=== PATIENT | female | born 2000 | race Caucasian/White ===

== ENCOUNTER 2022-02-03 20:24 | Emergency (ER) | payer OTHER, SELFPAY ==
--- NOTE | ~2022-02-03 | XR_ITS ---
EXAMINATION: XR chest 2V DATE: 02/03/2022 20:59 INDICATION: Chest and low back pain. TECHNIQUE: Frontal and lateral views of the chest were obtained. COMPARISON: Chest single view 07/02/2018 FINDINGS: The chest demonstrates clear lungs without pneumonia, pleural effusion, or pneumothorax. Th e heart size is normal. IMPRESSION: 1. No acute cardiopulmonary disease. Reviewed, dictated and finalized at location E.
[2022-02-03 20:33] VITALS: BP 123/60; PULSE 124; RESP 17; TEMP 37.5; O2SAT 100
--- NOTE | 2022-02-03 20:44 | ECG_ITS ---
Measurements Intervals [place] Rate: 120 P: 0 TX: 155 QRS: -26 QRSD: 82 T: 55 QT: 314 QTc: 445 Interpretive Statements SINUS TACHYCARDIA BORDERLINE LEFT AXIS DEVIATION [QRS AXIS < -20] MINIMAL VOLTAGE CRITERIA FOR LVH, CONSIDER NORMAL VARIANT [MEETS CRITERIA IN ONE OF: R(aVL), S(V1), R(V5), R(V5/V6)+S(V1)] BORDERLINE ECG NO PREVIOUS ECG AVAILABLE FOR COMPARISON Electronically Signed On 02-04-2022 16:14:13 CDT by Jamie Sanches M.D.
[2022-02-03 21:00] LABS: Basophils Percent Auto 0.3 % (0.2-1.2); Eosinophils Absolute Auto 0.1 K/mm3 (0-0.3); Hematocrit 42.3 % (37.0-47.0); Hemoglobin 14.4 g/dL (12.0-15.0); Immature Granulocyte Absolute 0.02 K/mm3 (0.00-0.031); Immature Granulocyte Percent A 0.2 % (0-0.5); Lymphocytes Absolute Auto 0.56 K/mm3 (0.9-3.2); Lymphocytes Percent Auto 5.8 % (18.3-44.2); Mean Corpuscular Hemoglobin 31.2 pg (26-34); Mean Corpuscular Volume 91.6 fl (80-100); Mean Platelet Volume 9.3 fl (7.4-10.4); Monocytes Absolute Auto 0.6 K/mm3 (0.1-0.6); Monocytes Percent Auto 6.6 % (2.6-8.5); Neutrophils Absolute Auto 8.2 K/mm3 (1.3-6.7); Neutrophils Percent Auto 86.1 % (45.5-73.1); Platelet Count Result 289 k/mm3 (150-375); Red Blood Count 4.62 M/mm3 (4.2-5.4); Red Cell Distribution Width 11.9 % (11.5-14.5); White Blood Count 9.6 K/mm3 (4.5-10.0)
[2022-02-03] MEDS: ACETAMINOPHEN 500 MG TABLET 1000 MG PO (21:01)
[2022-02-03] MEDS: SODIUM CHLORIDE 0.9% IV 1,000 ML 999 ML IV CONT (21:02)
[2022-02-03] MEDS: MORPHINE SULFATE (*CRX) 4 MG/ML INJ IV PUSH (21:04)
[2022-02-03 21:05] VITALS: BP 112/63; PULSE 122; RESP 19; O2SAT 100
[2022-02-03 21:12] LABS: Anion Gap 11 mmol/L (8-16); Blood Urea Nitrogen 19 mg/dL (7-17); Calcium 9.3 mg/dL (8.4-10.2); Carbon Dioxide 21 mmol/L (22-30); Chloride 102 mmol/L (98-107); Estimated Glomerular Filt Rate > 60; Glucose 89 mg/dL (65-110); Potassium 3.3 mmol/L (3.4-5.0); Sodium 134 mmol/L (137-145)
[2022-02-03 21:36] LABS: Influenza A QL RT-PCR Positive (Negative); Influenza B QL RT-PCR Negative (Negative); SARS-CoV-2 RNA PCR Negative
[2022-02-03 22:02] LABS: Troponin I < 0.012 ng/mL (0.000-0.034)
--- NOTE | 2022-02-03 22:30 | ED.GENADULT ---
HPI - General Adult General Chief complaint: Chest Pain Stated complaint: chest and jaw pain Time Seen by Provider: 02/03/22 20:28 History of Present Illness HPI narrative: Patient is a 21-year-old female who presents to the ER with aching chest pain. Began earlier in the day and has begun to radiate up into her right neck. She is having back pain as well with this. She reports has had mild cough. She took a Covid test this morning that was negative. No runny nose or sore throat. No documented fevers at home. Patient took 400 mg ibuprofen prior to arrival without relief of discomfort. No exertional chest pain. No pain with deep breath. No hemoptysis. Patient is not on OCPs. No leg cramping or swelling. Related Data Allergies Allergy/AdvReac Type Severity Reaction Status Date / Time No Known Allergies Allergy Verified 02/03/22 20:36 Review of Systems Review of Systems: All systems reviewed & are unremarkable except as noted in HPI and below Constitutional: Constitutional: Denies chills, Denies fever(s) and Denies weakness ENT: Denies nasal congestion and Denies sore throat Cardiovascular: Cardiovascular: Reports chest pain, Denies rapid heart rate and Reports radiating jaw, neck or arm pain Respiratory: Respiratory: Reports cough, Denies dyspnea and Denies wheezing Gastrointestinal: Gastrointestinal: Denies abdominal pain, Denies nausea and Denies vomiting Musculoskeletal: Musculoskeletal: Reports myalgias, Denies arthralgias and Denies joint swelling PMFSH Past Medical History Medical History (Updated 02/03/22 @ 22:53 by Hector Barrientos MD) Healthy female adult Surgical History Surgical History (Updated 02/03/22 @ 22:53 by Hector Barrientos MD) No history of previous surgery Social History Social History (Updated 02/03/22 @ 22:53 by Hector Barrientos MD) Smoking status: Never smoker Exam Narrative: GENERAL: Well-appearing, well-nourished, and in no acute distress. HEAD: Normocephalic, atraumatic. ENT: Mucous membranes moist. NECK: Supple. No reproducible tenderness to the paraspinal musculature or sternocleidomastoids. CHEST: Clear to auscultation. No respiratory distress. HEART: Tachycardic regular.. Normal peripheral pulses. ABDOMEN: Soft, nontender, nondistended. Back: No tenderness of the T/L-spine along midline. No reproducible paraspinal muscular tenderness at these levels either. EXTREMITIES: Normal range of motion. No edema. SKIN: Warm, dry, no rash. NEURO: Alert and oriented x3. PSYCH: Normal mood and affect. Course Course Emergency Course: Patient informed of results. Pain improved. Heart rate improving. Will prescribe Tamiflu for home. Vital Signs Vital signs: Vital Signs Temperature 99.5 F 02/03/22 20:33 Pulse Rate 124 H 02/03/22 20:33 Respiratory Rate 17 02/03/22 20:33 Blood Pressure 123/60 02/03/22 20:33 Pulse Oximetry 100 02/03/22 20:33 Temperature 99.5 F 02/03/22 20:33 Pulse Rate 122 H 02/03/22 21:05 Respiratory Rate 19 02/03/22 21:05 Blood Pressure 112/63 02/03/22 21:05 Pulse Oximetry 100 02/03/22 21:05 Medical Decision Making Vital Signs Vital Signs: Vital Signs Temperature 99.5 F 02/03/22 20:33 Pulse Rate 124 H 02/03/22 20:33 Respiratory Rate 17 02/03/22 20:33 Blood Pressure 123/60 02/03/22 20:33 Pulse Oximetry 100 02/03/22 20:33 Temperature 99.5 F 02/03/22 20:33 Pulse Rate 122 H 02/03/22 21:05 Respiratory Rate 19 02/03/22 21:05 Blood Pressure 112/63 02/03/22 21:05 Pulse Oximetry 100 02/03/22 21:05 Lab Data Result diagrams: 02/03/22 20:52 02/03/22 20:52 Labs: Lab Results 02/03/22 02/03/22 02/03/22 Range/Units 20:52 20:52 20:52 WBC 9.6 (4.5-10.0) K/mm3 RBC 4.62 (4.2-5.4) M/mm3 Hgb 14.4 (12.0-15.0) g/dL Hct 42.3 (37.0-47.0) % MCV 91.6 (80-100) fl MCH 31.2 (26-34) pg MCHC 34.0 (32-36) g/dl RDW 11
[2022-02-03 23:01] VITALS: BP 106/61; PULSE 100; RESP 16; O2SAT 98
== END 2022-02-03 23:02 | disposition home or self-care (01) ==
PROVIDERS: Emergency Provider Emergency Medicine
DX: J10.1 Influenza due to other identified influenza virus with other respiratory manifestations (principal); Z20.822 Contact with and (suspected) exposure to COVID-19; R00.0 Tachycardia, unspecified; R94.31 Abnormal electrocardiogram [ECG] [EKG]
CPT/HCPCS: 36415; 71046; 80048; 84484; 85025; 87502; 93005; 96361; 96374; 99284; A9270; C9803; J2270; J7030; U0003; U0005

== ENCOUNTER 2023-03-20 19:52 | Emergency (ER) | payer OTHER, SELFPAY ==
--- NOTE | ~2023-03-20 | XR_ITS ---
EXAMINATION: XR chest 2V DATE: 03/20/2023 20:29 INDICATION: Nausea and vomiting TECHNIQUE: frontal and lateral views of the chest were obtained. COMPARISON: 02/03/2022 FINDINGS: The lungs are clear with no focal airspace opacities, pulmonary edema, pleural effusion or pneumothor ax. The cardiomediastinal silhouette is normal. Unchanged mild anterior wedging of a couple mid thora cic vertebral bodies. IMPRESSION: 1. No acute cardiopulmonary disease. Reviewed, dictated and finalized at location A.
--- NOTE | ~2023-03-20 | US_ITS ---
EXAMINATION: US right upper quadrant DATE: 03/20/2023 22:41 INDICATION: Biliary colic. TECHNIQUE: Multiple grayscale and Doppler ultrasound images of the abdomen were obtained. COMPARISON: None FINDINGS: The visualized portions of the head, body, and tail of the pancreas are normal. The liver i s normal without focal lesion. There is normal flow in main portal vein. The gallbladder is normal in size. No gallstones or gallbladder wall thickening. There is no sonographic Dejesus sign. The common duct is normal and measures 2 mm. IMPRESSION: 1. Normal right upper quadrant ultrasound. Reviewed, dictated and finalized at location A.
[2023-03-20 19:54] VITALS: BP 121/73; PULSE 82; RESP 18; TEMP 37; O2SAT 100
--- NOTE | 2023-03-20 19:55 | ECG_ITS ---
Measurements Intervals [place] Rate: 84 P: 55 [place]: 128 QRS: 98 QRSD: 79 T: 18 QT: 357 QTc: 424 Interpretive Statements SINUS RHYTHM RIGHT AXIS DEVIATION RSR' IN V1 OR V2, PROBABLY NORMAL VARIANT BORDERLINE T WAVE ABNORMALITY- INFERIOR LEADS BASELINE ARTIFACT- I, II, III, AVR, AVL, V1 BORDERLINE ECG COMPARED TO ECG 02/03/2022 20:32:02 SINUS RHYTHM NOW PRESENT Electronically Signed On 03-20-2023 20:53:06 CDT by Leander Faye D.O.
[2023-03-20 20:09] LABS: Basophils Absolute Auto 0.1 K/mm3 (0.0-0.1); Basophils Percent Auto 0.6 % (0.2-1.2); Eosinophils Absolute Auto 0.7 K/mm3 (0-0.3); Eosinophils Percent Auto 8.4 % (0-4.4); Hematocrit 41.1 % (37.0-47.0); Immature Granulocyte Absolute 0.02 K/mm3 (0.00-0.031); Immature Granulocyte Percent A 0.2 % (0-0.5); Lymphocytes Absolute Auto 2.55 K/mm3 (0.9-3.2); Lymphocytes Percent Auto 29.2 % (18.3-44.2); Mean Corpuscular HGB Conc 34.1 g/dl (32-36); Mean Corpuscular Hemoglobin 31.5 pg (26-34); Mean Corpuscular Volume 92.4 fl (80-100); Mean Platelet Volume 9.2 fl (7.4-10.4); Monocytes Absolute Auto 0.5 K/mm3 (0.1-0.6); Monocytes Percent Auto 5.3 % (2.6-8.5); Neutrophils Absolute Auto 4.9 K/mm3 (1.3-6.7); Neutrophils Percent Auto 56.3 % (45.5-73.1); Platelet Count Result 298 k/mm3 (150-375); Red Blood Count 4.45 M/mm3 (4.2-5.4); White Blood Count 8.7 K/mm3 (4.5-10.0)
[2023-03-20 20:21] LABS: Alanine Aminotransferase 24 U/L (6-35); Albumin Level 4.7 g/dL (3.5-5.1); Alkaline Phosphatase 39 U/L (38-126); Anion Gap 8 mmol/L (8-16); Aspartate Amino Transferase 33 U/L (14-36); Bilirubin,Total 0.6 mg/dL (0.2-1.3); Blood Urea Nitrogen 13 mg/dL (7-17); Calcium 9.3 mg/dL (8.4-10.2); Carbon Dioxide 27 mmol/L (22-30); Chloride 101 mmol/L (98-107); Estimated CRCL calculation 97 ml/min; Estimated Glomerular Filt Rate > 60; Glucose 93 mg/dL (65-110); Lipase 87 U/L (23-300); Potassium 3.9 mmol/L (3.4-5.0); Sodium 136 mmol/L (137-145)
[2023-03-20 20:25] LABS: INR 1.1; Prothrombin Time 14.5 Seconds (11.1-14.7)
[2023-03-20 20:27] LABS: Partial Thromboplastin Time 30.9 SECONDS (22.3-36.8)
[2023-03-20 20:33] LABS: Troponin I < 0.012 ng/mL (0.000-0.034)
[2023-03-20 21:27] VITALS: BP 116/64; PULSE 77; RESP 21; TEMP 36.6; O2SAT 100
--- NOTE | 2023-03-20 21:29 | ED.NAVMDI ---
HPI - Nausea/Vomiting/Diarrhea General Chief complaint: Nausea/Vomiting/Diarrhea <Patricia Myles PA-C - Last Filed: 03/21/23 02:55> Stated complaint: multiple complaints <Patricia Myles PA-C - Last Filed: 03/21/23 02:55> Time Seen by Provider: 03/20/23 21:17 <Patricia Myles PA-C - Last Filed: 03/21/23 02:55> History of Present Illness HPI Narrative: 23-year-old female reports for evaluation of epigastric abdominal pain intermittently for the past 2 weeks. Patient reports the pain occurs approximately 1 hour after she eats, she cannot recognize a pattern with the types of food she eats. States today she came in because the pain increasingly worsened after she ate avocado toast with egg at 3:30 PM with the pain radiating to her back. She states now the pain has subsided. She reports episodes of nausea with the epigastric abdominal pain and vomiting approximately once every 4 days. She denies heartburn, indigestion, fever, body aches, chills, hematemesis, coffee-ground emesis, hematochezia or melena. Reports he has not been evaluated for this pain before. She reports taking NSAIDs twice a week and drinking approximately 7 drinks per week. <Patricia Myles PA-C - Last Filed: 03/21/23 02:55> Related Data Allergies/Adverse reactions: Allergies Allergy/AdvReac Type Severity Reaction Status Date / Time No Known Allergies Allergy Verified 02/03/22 20:36 <Patricia Myles PA-C - Last Filed: 03/21/23 02:55> Review of Systems Review of Systems: CONSTITUTIONAL: Denies fever, chills EYES: Denies visual changes, redness, or discharge. ENT: Denies rhinorrhea, congestion, sore throat, or otalgia. CARDIOVASCULAR: Denies chest pain, palpitations, or edema. RESPIRATORY: Denies cough or dyspnea. GASTROINTESTINAL: See HPI GENITOURINARY: Denies dysuria or hematuria. SKIN: Denies rash or itching. MUSCULOSKELETAL: Denies back pain, joint pain, or myalgia. NEUROLOGIC: Denies headache, numbness, dizziness, or weakness. PSYCHIATRIC: Denies anxiety or depression. <Patricia Myles PA-C - Last Filed: 03/21/23 02:55> [facility] Past Medical History Medical History: Medical History Healthy female adult <Patricia Myles PA-C - Last Filed: 03/21/23 02:55> Surgical History Surgical History: Surgical History No history of previous surgery <Patricia Myles PA-C - Last Filed: 03/21/23 02:55> Social History Social History: Social History Smoking status: Never smoker <Patricia Myles PA-C - Last Filed: 03/21/23 02:55> Exam Narrative: GENERAL: Well-appearing, in no acute distress. Patient resting on room and examined. She is pleasant and conversational. HEAD: Normocephalic EYES: PERRLA ENT: Nares clear. Mucous membranes moist. Oropharynx without tonsillar hypertrophy exudate or other lesions. NECK: Supple. CHEST: No respiratory distress. Clear to auscultation, no adventitious breath sounds. HEART: Regular rate and rhythm. No murmur heard. Normal peripheral pulses. ABDOMEN: Soft, nontender, normal active bowel sounds. Negative Dejesus's, McBurney's, psoas. No peritoneal signs. EXTREMITIES: Normal range of motion. No edema. SKIN: Warm, dry, no rash. NEURO: No focal deficits. Alert and oriented x3. PSYCH: Normal mood and affect. <Patricia Myles PA-C - Last Filed: 03/21/23 02:55> Course [employer]NAL TECHNICIAN/PA Physician Supervision This is a was performed by both a physician and an APC. I performed all aspects of the MDM as documented w/ the following additions: 23-year-old presenting with abdominal pain. Workup negative. Likely due to gastritis. Patient discharged.All questions answered. Patient in agreement w/ disposition. <Karel Hermosillo MD - Last Filed: 03/26/23 23:09> Vital Signs Griselda
[2023-03-20] MEDS: BELLADONNA ALK/PHENOB ELIX 10 ML, MAG HYDROX/ALUMINUM HYD/SIMETH 30 ML, LIDOCAINE HCL 2... PO (21:41)
[2023-03-20] MEDS: SODIUM CHLORIDE 0.9% IV 1,000 ML 999 ML IV CONT (21:47)
[2023-03-20] MEDS: FAMOTIDINE 20 MG/2 ML VIAL IV PUSH (21:49)
[2023-03-20 21:55] LABS: Appearance Urine Clear (Clear); Bilirubin Urine Negative (Negative); Blood Urine Negative (Negative); Color Urine Yellow (Yellow); Glucose Urine UA Negative (Negative); Ketones Urine 1+ mg/dL (Negative); Leukocyte Esterase Ur Negative LEU/UL (Negative); Nitrate Urine Negative (Negative); Protein Urine Negative (Negative); Specific Grav Ur 1.011 (1.001-1.035); Urobilinogen Urine 0.2 mg/dL (<2.0)
[2023-03-20 22:06] LABS: Lactic Acid Reflex 0.7 mmol/L (0.7-2.0)
[2023-03-20 22:11] LABS: Add Urine Microscopic? NO
[2023-03-20 22:27] VITALS: BP 104/65; PULSE 70; RESP 20; O2SAT 100
[2023-03-20 22:39] LABS: Pregnancy On Board Control Positive; Urine Pregnancy Test Negative
[2023-03-20 23:19] LABS: Troponin I < 0.012 ng/mL (0.000-0.034)
[2023-03-20 23:30] VITALS: BP 100/66; PULSE 80; RESP 16; O2SAT 96
[2023-03-21 00:44] VITALS: BP 102/76; PULSE 62; RESP 15; O2SAT 100
[2023-03-21 01:46] VITALS: BP 102/61; PULSE 98; RESP 21; O2SAT 100
[2023-03-21 02:14] VITALS: BP 95/65; PULSE 80; RESP 18; TEMP 36.3; O2SAT 98
== END 2023-03-21 02:15 | disposition home or self-care (01) ==
PROVIDERS: Emergency Medicine; Emergency Provider Physician Assistant
DX: R10.13 Epigastric pain (principal); R11.2 Nausea with vomiting, unspecified
CPT/HCPCS: 36415; 71046; 76705; 80053; 81003; 81025; 83605; 83690; 84484; 85025; 85610; 85730; 93005; 96361; 96374; 99284; A9270; J7030

== ENCOUNTER 2024-09-22 08:40 | Emergency (ER) | payer OTHER, SELFPAY ==
--- NOTE | ~2024-09-22 | XR_ITS ---
EXAMINATION: XR knee RT 3V DATE: 09/22/2024 09:20 INDICATION: Right knee injury with medial sided pain post fall TECHNIQUE: AP, lateral and sunrise views of the right knee were obtained COMPARISON: None. FINDINGS: Patella jose with increased Insall-Salvati ratio of 1.5. Alignment is otherwise normal. Interval incr ease in size of a corticated ossicle at the medial margin of the patella consistent with sequela of c hronic medial patellofemoral retinacular avulsion injury. There appears to be asymmetric thickening o f the soft tissues of the medial patellofemoral retinaculum on the sunrise view which could represent scarring or acute reinjury. No acute fracture. Joint spaces are normal. Moderate-sized knee joint ef fusion at the suprapatellar pouch. IMPRESSION: 1. Moderate-sized right knee joint effusion with no acute osseous abnormality. 2. Patella jose and chronic corticated ossicle along the medial margin of the patella suggesting sequ kenny of chronic lateral patellar subluxation with medial patellofemoral retinacular injury. There is a symmetric thickening of the medial patellofemoral retinaculum which could be related to chronic scarr ing or acute re injury. Reviewed, dictated and finalized at location B. [employer] IMPRESSION: 1. Moderate-sized right knee joint effusion with no acute osseous abnormality. 2. Patella jose and chronic corticated ossicle along the medial margin of the p atella suggesting sequela of chronic lateral patellar subluxation with medial p atellofemoral retinacular injury. There is asymmetric thickening of the medial patellofemoral retinaculum which could be related to chronic scarring or acute re injury.
[2024-09-22 08:52] VITALS: BP 97/53; PULSE 79; RESP 15; TEMP 36.4; O2SAT 100
--- NOTE | 2024-09-22 09:12 | ED.LOWEXIN ---
HPI - Extremity Injury (Lower) General Chief Complaint: Extremity Injury, Lower Stated Complaint: Right Knee Pain Time Seen by Provider: 09/22/24 09:10 Source: patient and RN notes reviewed Mode of arrival: ambulatory Limitations: no limitations History of Present Illness HPI Narrative: 24-year-old female presents with concern for right knee pain. Reports medial knee pain and swelling. Reports last night she was walking her to large dogs in the got tangled and 1 of them hit her knee which made her lose her balance and twisted her knee. Reports she had a deformity last night. She reports her knee feels stiff and hurts with weight-bearing. She reports she dislocated her knee when she was 10 years old. complaint: knee injury Related Data Allergies Allergy/AdvReac Type Severity Reaction Status Date / Time No Known Allergies Allergy Verified 02/03/22 20:36 Review of Systems Review of Systems: CONSTITUTIONAL: Denies malaise, chills, sweats, or fever. SKIN: Denies rash or itching, open skin, laceration, abrasion, redness, warmth MUSCULOSKELETAL: Reports right knee pain and swelling NEUROLOGIC: Denies numbness, weakness All systems reviewed & are unremarkable except as noted in HPI and below PMFSH Past Medical History Medical History Healthy female adult Surgical History Surgical History No history of previous surgery Social History Social History Smoking status: Never smoker Comments At time of signature, agree with nursing past medical, surgical, social and family history. There is no relevant family history pertinent to the presenting complaint Exam Narrative: GENERAL: Well-appearing, well-nourished, and in no acute distress. HEAD: Normocephalic, atraumatic. EYES: PERRLA, conjunctivae clear NECK: Supple. CHEST: Speaks in full sentences. No respiratory distress. HEART: Regular rate and rhythm. Normal and equal peripheral pulses. EXTREMITIES: Right knee has grossly normal strength and sensation, limited range of motion. Mild edema, no ecchymosis. Normal sensation with sensitivity to light touch and pain. Medial tenderness. No open wounds, no skin tenting, no devitalized tissue or atrophy, no trophic changes, no obvious deformity, alignment normal, nearby joints and structures intact. Distal pulses palpable and equal bilaterally, skin warm, dry, pink. Capillary refill less than 3 seconds. SKIN: Warm, dry, no rash. NEURO: Alert and oriented x3. PSYCH: Normal mood and affect Course Course Emergency Course: Patient is aware of diagnosis, understands and agrees to treatment plan. Anticipatory guidance given. Patient agrees to follow-up as directed and is aware of reasons to seek care at the emergency department. Portions of this record may have been created with voice recognition software Level of Care: Express Care Visit Vital Signs Vital signs: Vital Signs Temperature 97.6 F 09/22/24 08:52 Pulse Rate 79 09/22/24 08:52 Respiratory Rate 15 09/22/24 08:52 Blood Pressure 97/53 L 09/22/24 08:52 Pulse Oximetry 100 09/22/24 08:52 Oxygen Delivery Room Air 09/22/24 08:52 Temperature 97.6 F 09/22/24 08:52 Pulse Rate 79 09/22/24 08:52 Respiratory Rate 15 09/22/24 08:52 Blood Pressure 97/53 L 09/22/24 08:52 Pulse Oximetry 100 09/22/24 08:52 Oxygen Delivery Room Air 09/22/24 08:52 Reviewed. MDM - Extremity Injury (Lower) MDM Narrative Medical decision making narrative: Patients injury and pain is consistent with musculoskeletal etiology. No signs of neurological or vascular compromise on exam. Compartments and tissues are soft without signs of compartment syndrome. Pain is felt appropriate for further evaluation on an outpatient basis. Imaging Data My impression: Images reviewed, interpreted by radiologist, agree, see report. Radiologist's impression: EXAMINATION: XR knee RT 3V DATE: 09/22/2024 09:20 INDICATION: Right knee injury with medial sided pain post fall TECHNIQUE: AP, lateral and sunrise views of the right knee were obtained COMPARISON: None. FINDINGS: Patella jose with increased Insall-Salvati ratio of 1.5. Alignment is otherwise normal. Interval increase in size of a corticated ossicle at the medial margin of the patella consistent with sequela of chronic medial patellofemoral retinacular avulsion injury. There appears to be asymmetric thickening of the soft tissues of the medial patellofemoral retinaculum on the sunrise view which could represent scarring or acute reinjury. No acute fracture. Joint spaces are normal. Moderate-sized knee joint effusion at the suprapatellar pouch. IMPRESSION: 1. Moderate-sized right knee joint effusion with no acute osseous abnormality. 2. 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 There is asymmetric thickening of the medial patellofemoral retinaculum which could be related to chronic scarring or acute re injury. Critical Care Time Critical Care Time Critical Care Time: No Discharge Plan Discharge Clinical Impression: Effusion of knee joint right, Patella jose, Other subluxation of right patella, initial encounter Patient Disposition: Home, Self-Care Condition: Stable Instructions: Swollen Knee Joint (ED) Additional Instructions: Avoid activities that cause pain until the pain subsides. Ice to the area 20-30 minutes 4-6 times a day Elevate above heart Elastic wrap as directed for comfort for the next 5-7 days Crutches as directed if needed Tylenol for lesser pain Ibuprofen regularly for the next 2-3 days for the inflammation Follow up with Orthopedics for further evaluation If the condition worsens with numbness, tingling, decrease sensation with weakness seek treatment in the emergency room immediately. Prescriptions: No Action ibuprofen 600 mg tablet 600 mg PO TID Qty: 20 0RF oseltamivir 75 mg capsule 75 mg PO BID Qty: 10 0RF pantoprazole 20 mg tablet,delayed release (DR/EC) 20 mg PO QAM Qty: 20 0RF ondansetron 4 mg tablet,disintegrating 4 mg PO Q8H Qty: 14 0RF Follow-up/Referrals: Sanjiv Ca MD [Physician] - PHYSICIAN,ADVERTISER [Primary Care Provider] - Stand Alone Forms: Work/School Release IP Time of Disposition: 09:49
== END 2024-09-22 09:57 | disposition home or self-care (01) ==
PROVIDERS: Emergency Provider Nurse Practitioner
DX: M25.461 Effusion, right knee (principal); S83.091A Other subluxation of right patella, initial encounter; W54.1XXA Struck by dog, initial encounter
CPT/HCPCS: 73562; 99213; G0463

== ENCOUNTER 2024-10-19 07:16 | Outpatient (CLI) | payer OTHER, SELFPAY ==
--- NOTE | ~2024-10-19 | MR_ITS ---
MRI of the right knee Clinical history: Pain Technique: Coronal proton density and proton density-weighted images, sagittal proton-density and T2 fat-sat images, and axial proton-density fat-saturated images were acquired. Findings: Anterior and posterior cruciate ligament are intact. Medial collateral ligament and the lat eral collateral ligament complex are intact. Popliteus tendon is intact. Medial and lateral menisci are intact, without evidence of tear. Articular cartilage is well preserved throughout the knee. There is marrow edema at the lateral femor al condyle, presumably representing bone contusion from direct impaction injury. Extensor mechanism is intact. No joint effusion or Chu's cyst. Impression: Bone contusion the lateral femoral condyle, most likely due to direct impaction injury. Reviewed, dictated and finalized at [facility]. [employer] Impression: Bone contusion the lateral femoral condyle, most likely due to direct impaction injury.
== END 2024-10-19 07:17 | disposition home or self-care (01) ==
PROVIDERS: PCP Nurse Practitioner Family; Visit Provider Nurse Practitioner Family
DX: S70.11XA Contusion of right thigh, initial encounter (principal); X58.XXXA Exposure to other specified factors, initial encounter
CPT/HCPCS: 73721